=== PATIENT | female | born 1995 | race Caucasian/White ===

== ENCOUNTER 2020-03-31 07:53 | Emergency (ER) | payer BC ==
[2020-03-31] MEDS ORDERED: Sodium Chloride 0.9% 10 ML Syringe FLUSH PRN (08:26)
[2020-03-31] MEDS ORDERED: Sodium Chloride 0.9% 2.5 ML Syringe FLUSH PRN (08:26)
[2020-03-31] MEDS ORDERED: Ketorolac 30 MG/ML SDV IVPUSH ONE (08:26)
--- NOTE | 2020-03-31 08:32 | EDM.PDOC ---
ED HPI GENERAL MEDICAL PROBLEM - General Chief Complaint: General Stated Complaint: LABS NEEDED- REFERRED HER TO ER Time Seen by Provider: 03/31/20 08:07 Source of Information: Reports: Patient - History of Present Illness INITIAL COMMENTS - FREE TEXT/NARRATIVE: History of present illness: 24-year-old female presenting with ongoing bilateral hand and foot joint pains for the last week. No trauma recalled. Has not been sick, no recent cough, shortness of breath, runny nose, fevers, nasal congestion or any other symptoms. She reports 2 weeks ago she played in a softball tournament but symptoms started 1 week after that and she is not certain that is related. She was seen in a different emergency room at the outset of symptoms and was told this may be joint inflammation and has been taking ibuprofen without relief. She called her primary physician today who could not get her into the office and told her to come to the ER and gave her a list of labs requested to be drawn. Pain is moderate in both hands and she is having difficulty holding her phone and holding up [id number] shakers, unscrewing jars, etc. She also reports that she sometimes has difficulty getting up and lifting her leg due to pain and stiffness in the knee. Not having any calf pain. Last menstrual period 2-1/2 weeks ago She does not recall any family history of known rheumatologic illness, however she does report her father is being worked up for lupus and rheumatoid arthritis currently. Review of systems: As per history of present illness and below otherwise all systems reviewed and negative. Past medical history: As per history of present illness and as reviewed below otherwise noncontributory. Surgical history: As per history of present illness and as reviewed below otherwise noncontributo ry. Arm fracture repair, tonsillectomy Social history: No reported history of drug or alcohol abuse. Never smoker Family history: As per history of present illness and as reviewed below otherwise noncontributory. Physical exam: GEN: no acute distress, well appearing HEENT: Atraumatic, normocephalic, mucous membranes moist, Neck: supple. Lungs: No respiratory distress. Heart: RRR Extremities: Mildly tender in joints of hands and feet. Minimal swelling. No erythema, intact range of motion. Neurovascularly intact. Neuro: Awake, alert, oriented. Neuro Exam nonfocal. Skin: warm, dry, no lesions Diagnostics: Labs: CBC, CMP, hCG, ESR, CRP, ABBEY, RF [employer]rapeutics: IM Toradol MDM: Impression: Plan: Definitive disposition and diagnosis as appropriate pending reevaluation and review of above. Generalized Pain Score (Numeric/FACES): 7 - Related Data Allergies Allergy/AdvReac Type Severity Reaction Status Date / Time No Known Allergies Allergy Verified 03/31/20 08:12 Home Meds: Home Meds Minocycline [Minocin] 50 mg PO BID 03/31/20 [History] Spironolactone [Aldactone] 25 mg PO DAILY 03/31/20 [History] Tri Lo 1 tab PO DAILY 03/31/20 [History] buPROPion [Wellbutrin SR] 150 mg PO DAILY 03/31/20 [History] Past Medical History Psychiatric History: Reports: Anxiety Dermatologic History: Reports: Other (See Below) Other Dermatologic History: Acne - Infectious Disease History Infectious Disease History: Reports: None Social & Family History - Family History Family Medical History: Noncontributory - Tobacco Use Smoking Status *Q: Never Smoker Second Hand Smoke Exposure: No - Caffeine Use Caffeine Use: Reports: None - Recreational Drug Use Recreational Drug Use: No ED ROS GENERAL - Review of Systems Review Of Systems: See Below (See HPI) ED EXAM, GENERAL - Physical Exam Exam: See Below (See HPI) Course - Vital Signs Text/Narrative:: Suspect rheumatologic process for this patient. Pain ongoing for 1 week without any signs of severe infection or trauma. Initial rheumatologic labs ordered for the patient at the request of her primary care physician. Patient will follow-up outpatient with primary care and will also refer for rheumatology follow-up. Labs largely unremarkable, mild anemia, ESR and CRP not elevated. Last Recorded V/S: Last Vital Signs Temp 96.3 F L 03/31/20 08:14 Pulse 70 03/31/20 09:28 Resp 15 03/31/20 09:28 BP 110/70 03/31/20 09:28 Pulse Ox 100 03/31/20 09:28 - Orders/Labs/Meds Orders: Active Orders 24 hr Category Date Time Status ABBEY W/RFX TO ALL IF POSITIVE [REF] Stat Lab 03/31/20 08:42 Received Labs: Laboratory Tests 03/31/20 03/31/20 03/31/20 Range/Units 08:42 08:42 08:42 WBC 4.58 (4.0-11.0) K/uL RBC 4.25 L (4.30-5.90) M/uL Hgb 11.9 L (12.0-16.0) g/dL Hct 36.3 (36.0-46.0) % MCV 85.4 (80.0-98.0) fL MCH 28.0 (27.0-32.0) pg MCHC 32.8 (31.0-37.0) g/dL RDW Std Deviation 39.3 (28.0-62.0) fl RDW Coeff of Vasu 13 (11.0-15.0) % Plt Count 177 (150-400) K/uL MPV 11.20 (7.40-12.00) fL Neut % (Auto) 67.5 (48.0-80.0) % Lymph % (Auto) 25.5 (16.0-40.0) % [place] % (Auto) 6.6 (0.0-15.0) % Eos % (Auto) 0.2 (0.0-7.0) % Baso % (Auto) 0.2 (0.0-1.5) % Neut # (Auto) 3.1 (1.4-5.7) K/uL Lymph # (Auto) 1.2 (0.6-2.4) K/uL [place] # (Auto) 0.3 (0.0-0.8) K/uL Eos # (Auto) 0.0 (0.0-0.7) K/uL Baso # (Auto) 0.0 (0.0-0.1) K/uL Nucleated RBC % 0.0 /100WBC Nucleated RBCs # 0 K/uL ESR 15 (0-19) mm/hr Sodium 136 (136-145) mmol/L Potassium 4.4 (3.5-5.1) mmol/L Chloride 103 (98-107) mmol/L Carbon Dioxide 23.9 (21.0-32.0) mmol/L BUN 13 (7.0-18.0) mg/dL Creatinine 0.9 (0.6-1.0) mg/dL Est Cr Clr Drug Dosing 93.73 mL/min Estimated GFR (MDRD) > 60.0 ml/min Glucose 86 (74-106) mg/dL Calcium 8.5 (8.5-10.1) mg/dL Total Bilirubin 0.4 (0.2-1.0) mg/dL AST 13 L (15-37) IU/L ALT 22 (14-63) IU/L Alkaline Phosphatase 67 (46-116) U/L C-Reactive Protein 0.30 (0.00-0.90) mg/dL Total Protein 7.5 (6.4-8.2) g/dL Albumin 3.4 (3.4-5.0) g/dL Globulin 4.1 H (2.6-4.0) g/dL Albumin/Globulin Ratio 0.8 L (0.9-1.6) HCG, Qual (NEG) Rheumatoid Factor Scrn 03/31/20 Range/Units 08:42 WBC (4.0-11.0) K/uL RBC (4.30-5.90) M/uL Hgb (12.0-16.0) g/dL Hct (36.0-46.0) % MCV (80.0-98.0) fL MCH (27.0-32.0) pg MCHC (31.0-37.0) g/dL RDW Std Deviation (28.0-62.0) fl RDW Coeff of Vasu (11.0-15.0) % Plt Count (150-400) K/uL MPV (7.40-12.00) fL Neut % (Auto) (48.0-80.0) % Lymph % (Auto) (16.0-40.0) % [place] % (Auto) (0.0-15.0) % Eos % (Auto) (0.0-7.0) % Baso % (Auto) (0.0-1.5) % Neut # (Auto) (1.4-5.7) K/uL Lymph # (Auto) (0.6-2.4) K/uL [place] # (Auto) (0.0-0.8) K/uL Eos # (Auto) (0.0-0.7) K/uL Baso # (Auto) (0.0-0.1) K/uL Nucleated RBC % /100WBC Nucleated RBCs # K/uL ESR (0-19) mm/hr Sodium (136-145) mmol/L Potassium (3.5-5.1) mmol/L Chloride (98-107) mmol/L Carbon Dioxide (21.0-32.0) mmol/L BUN (7.0-18.0) mg/dL Creatinine (0.6-1.0) mg/dL Est Cr Clr Drug Dosing mL/min Estimated GFR (MDRD) ml/min Glucose (74-106) mg/dL Calcium (8.5-10.1) mg/dL Total Bilirubin (0.2-1.0) mg/dL AST (15-37) IU/L ALT (14-63) IU/L Alkaline Phosphatase (46-116) U/L C-Reactive Protein (0.00-0.90) mg/dL Total Protein (6.4-8.2) g/dL Albumin (3.4-5.0) g/dL Globulin (2.6-4.0) g/dL Albumin/Globulin Ratio (0.9-1.6) HCG, Qual NEGATIVE (NEG) Rheumatoid Factor Scrn NEGATIVE Meds: Medications Discontinued Medications Generic Name Dose Route Start Last Admin Trade Name Freq PRN Reason Stop Dose Admin Ketorolac Tromethamine 30 mg 03/31/20 08:26 03/31/20 08:48 Toradol IVPUSH 03/31/20 08:27 Not Given ONETIME ONE Ketorolac Tromethamine 60 mg 03/31/20 08:47 03/31/20 08:53 Toradol IM 03/31/20 08:48 60 mg ONETIME ONE Administration Sodium Chloride 10 ml 03/31/20 08:26 03/31/20 09:14 Saline Flush FLUSH 10 ml ASDIRECTED PRN Administration Keep Vein Open Sodium Chloride 2.5 ml 03/31/20 08:26 03/31/20 09:14 Saline Flush FLUSH 2.5 ml ASDIRECTED PRN Administration Keep Vein Open - Re-Assessments/Exams Free Text/Narrative Re-Assessment/Exam: 03/31/20 09:35 Patient is feeling more comfortable. Her pain is significantly improved. Discussed results, plan of care and need for referral/outpatient follow-up with PCP and rheumatology with patient. Also discussed plan of pain control with alternating ibuprofen/Tylenol. Departure - Departure Time of Disposition: 09:35 Disposition: Home, Self-Care 01 Clinical Impression: Joint pain Qualifiers: Laterality: bilateral - Discharge Information Instructions: How to Use Cold Therapy, Aagv-sn-Unew, Musculoskeletal Pain, Joint Pain, [id number] Referrals: Noni Amezquita NP [Primary Care Provider] - 1 Day Dhruv Hernández MD [Ordering Only Provider] - Forms: ED Department Discharge Additional Instructions: Please follow-up with your primary care physician and the a class lineman listed above. Please bring a copy of your lab results with you. Several of the labs that your doctor requested today will not be resulted today and therefore your physician will need to obtain these, you can sign a medical record release form. Please take ibuprofen 600 mg every 8 hours for the next 2 to 3 days on a set schedule. You may also add in 1 or 2 extra strength Tylenol in between these doses at the 4-hour tamir, so that you do not take more than 3 rounds of Tylenol in a 24-hour period. You may also apply ice to your hands and feet for no more than 20 minutes at a time 3-4 times a day for comfort. Keeping your hands and feet elevated may help with your pain as well. If your pain worsens or you develop a high fever or any other severe or worsening symptoms, please return to the emergency department. The following information is given to patients seen in the emergency department who are being discharged to home. This information is to outline your options for follow-up care. We provide all patients seen in our emergency department with a follow-up referral. The need for follow-up, as well as the timing and circumstances, are variable depending upon the specifics of your emergency department visit. If you don't have a primary care physician on staff, we will provide you with a referral. We always advise you to contact your personal physician following an emergency department visit to inform them of the circumstance of the visit and for follow-up with them and/or the need for any referrals to a consulting specialist. The emergency department will also refer you to a specialist when appropriate. T his referral assures that you have the opportunity for follow-up care with a specialist. All of these measure are taken in an effort to provide you with optimal care, which includes your follow-up. Under all circumstances we always encourage you to contact your private physician who remains a resource for coordinating your care. When calling for follow-up care, please make the office aware that this follow-up is from your recent emergency room visit. If for any reason you are refused follow-up, please contact the [facility] Emergency Department at and asked to speak to the emergency department charge nurse. Sepsis Event Note (ED) - Evaluation Sepsis Screening Result: No Definite Risk - Focused Exam Vital Signs: Vital Signs Temp Pulse Resp BP Pulse Ox 03/31/20 09:28 70 15 110/70 100 03/31/20 08:14 96.3 F L 88 15 110/70 99 - My Orders Last 24 Hours: My Active Orders 03/31/20 08:42 ABBEY W/RFX TO ALL IF POSITIVE [REF] Stat - Assessment/Plan Last 24 Hours: My Active Orders 03/31/20 08:42 ABBEY W/RFX TO ALL IF POSITIVE [REF] Stat
[2020-03-31] MEDS ORDERED: Ketorolac 60 MG/2 ML SDV IM ONE (08:47)
[2020-03-31 09:18] LABS: BLOOD UREA NITROGEN,BUN 13 mg/dL (7.0-18.0); CARBON DIOXIDE,CO2 23.9 mmol/L (21.0-32.0); CHLORIDE,CL 103 mmol/L (98-107); GLUCOSE RANDOM 86 mg/dL (74-106); POTASSIUM,K 4.4 mmol/L (3.5-5.1); SODIUM,NA 136 mmol/L (136-145)
== END 2020-03-31 09:53 | disposition home or self-care (01) ==
LOC: MW.ED 07:53
DX: M79.641 Pain in right hand (principal); M79.642 Pain in left hand; M79.671 Pain in right foot; M79.672 Pain in left foot; F41.9 Anxiety disorder, unspecified; Z79.899 Other long term (current) drug therapy
CPT/HCPCS: 36415; 80053; 84703; 85025; 85652; 86038; 86140; 86430; 96372; 99283; J1885